=== PATIENT | male | born 1945 | race Caucasian/White ===

== ENCOUNTER 2025-03-30 12:48 | Emergency (ER) | payer MEDICARE, OTHER, SELFPAY ==
[2025-03-30] VITALS (8 sets, daily range): BP systolic 133–174; BP diastolic 69–91; PULSE 60; O2SAT 97; BMI 24.4
--- NOTE | 2025-03-30 13:31 | ED.GENMED ---
History of Present Illness
General
Chief Complaint: Change in Mental Status
Source: patient
Exam Limitations: none
Time Seen by Provider: 03/30/25 13:15
History of Present Illness
History of Present Illness:
79yoM with a history of an intracranial hemorrhage in 2022 after a fall (managed conservatively) presenting with his for evaluation of weakness. 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
and gait imbalance. He was discharged from physical therapy about 3 months ago and since then, has been experiencing increasing falls. His last fall was about a week ago. states he hit his head rolling out of bed but patient denies this. He
has been increasingly weak over the past few days and weakness is generalized. He noticed some nausea this morning and states his 'head feels fuzzy' which is new. He denies any fevers, vomiting, diarrhea, chest pain, abdominal pain, shortness of
breath.
Phy Exam
General Physical Exam
General Presentation: well appearing and no apparent distress
General Skin: warm and dry
General Habitus: normal and elderly
General Mental: alert
ENT Exam
ENT Exam: normocephalic
Cardiovascular Exam
Cardiovascular Exam: regular rate/rhythm
Pulmonary Exam
Pulmonary Exam: lungs clear, no respiratory distress, no rales, no crackles, no rhonchi and no wheezing
Neurological Exam
Neurological Exam: alert, no motor deficits, speech normal and other (Patient A&O. 5/5 strength in all extremities. No focal deficits noted. )
[place] Coma Scale
Eye Opening: Spontaneous
Verbal Response: Oriented
Motor Response: Obeys Commands
GCS Total Score: 15
Skin Exam
Skin Exam: normal color and warm/dry
Psychiatric Exam
Psychiatric Exam: normal mood/affect
Course
Orders/Labs/Results
Orders:
Orders
03/30/25 13:29
Electrocardiogram (*1) Urgent
Reason for Study: Vertigo / Dizzy
CT Head W/o Iv Contrast Urgent
Comment:
Reason For Exam: head fuzziness, frequent falls
EKG- Treatment ONCE
03/30/25 13:34
Complete Blood Count/With Diff Urgent
Comprehensive Metabolic Panel Urgent
TSH Reflex To Free T4 Urgent
03/30/25 14:44
Pt Eval And Treat Urgent
Activity Level: Out of Bed- Ad Leanne
Abnormal Lab Results
03/30/25
13:34
MCHC 32.4 L g/dL
(33.0-37.0)
Absolute Monos (auto) 0.7 H 10^3/uL
(0.1-0.6)
Monocytes % 12.2 H %
(1.7-9.3)
Chloride 108 H mmol/L
(98-107)
Glucose 134 H mg/dl
(70-99)
03/30/25 13:34
03/30/25 13:34
Vital Signs
Initial and Last Documented VS:
Initial Vital Signs
Temp Pulse Resp BP Pulse Ox
97.8 F 70 20 163/91 96
03/30/25 12:51 03/30/25 12:51 03/30/25 12:51 03/30/25 12:51 03/30/25 12:51
Last Documented Vital Signs
Temp Pulse Resp BP Pulse Ox
97.8 F 60 11 172/74 97
03/30/25 12:51 03/30/25 15:50 03/30/25 15:50 03/30/25 15:49 03/30/25 15:50
MDM/Problems Addressed
Differential Diagnosis Includes:
79yoM here with generalized weakness. Chronic gait issues/weakness since an intracranial hemorrhage in 2022. Feels like his weakness is worse the past few days and his head is fuzzy. Frequent falls for several months. He is hypertensive with
otherwise stable vitals. He is awake, alert, with a GCS of 15. No focal neuro deficits noted on exam. Differential diagnosis includes but is not limited to: ambulatory dysfunction, residual side effects from prior intracranial hemorrhage, UTI,
thyroid dysfunction
Initial ED plan: Check CBC, CMP, TSH, EKG, UA, and CT head.
*Pulse Oximetry
SaO2: 96
Oxygen Mode of Delivery: Room air
Patient hypoxic: no
*EKG
Interpreted by ED Provider?: Yes
EKG Intrepretation Date: 03/30/25
Heart Rate: 60
Rate: normal
Rhythm: sinus
[place]: normal axis
Interval: normal interval
QRS Pattern: normal QRS
Ischemia: no ischemia
*Critical Care Note
Total Time (30-74mins, 75-104mins- exclusive of procedures): Not Applicable
Update Note
Update Note:
Labs unremarkable including normal white count, TSH, and renal function. EKG shows NSR without ischemic changes. CT head negative for acute findings. Patient evaluated by PT who recommended outpatient physical therapy. Patient unable to provide
urine sample in ED but both patient and are requesting to be discharged without urinalysis. Family did contact his PCP already for f/u. ED return precautions reviewed and he was discharged in stable condition.
ED Attending Note
-
Portions of this chart may have been created with voice recognition software.� Occasional wrong word or��sound alike� substitutions may have occurred due to the inherent limitations of voice recognition software.
Discharge Plan
Departure
Patient Disposition: Home (Routine Discharge)
Date of Disposition: 03/30/25
Time of Disposition: 15:45
Patient with high blood pressure during this ER visit?: Yes
Discharge Problem:
Generalized weakness
Instructions: Weakness - ED (DC)
Referrals:
Aneta Sue DO [Family Provider, Family Practice]
Activity Restrictions/Additional Instructions:
Please follow-up with your family doctor. Our physical therapist recommended that you restart outpatient physical therapy treatments.
Return to the ER with any new or worsening symptoms.
Interventions
Interventions:
*Risk Screen - Suicide Last Done: 03/30/25 12:52
*General Assessment Last Done: 03/30/25 14:15
*Neglect/Abuse Screening Last Done: 03/30/25 13:17
*ED- Fall Risk Assessment Last Done: 03/30/25 14:15
*ED COVID-19 Vaccine History Last Done: 03/30/25 14:15
*Nursing Disposition Last Done: 03/30/25 15:55
ED- Pulmonary Assessment Last Done: 03/30/25 13:24
ED-Psychological Assessment Last Done: 03/30/25 14:15
ED- Neurological Assessment Last Done: 03/30/25 13:19
ED- Cardiac Assessment Last Done: 03/30/25 13:24
ED Swallowing Screen Last Done: 03/30/25 14:14
Discharge Date and Time
Discharge Date/Time: 03/30/25 15:55
Print Language: LAO
[2025-03-30 13:46] LABS: Hematocrit 41.7 % (39.0-52.0); Hemoglobin 13.5 g/dL (13.0-18.0); Mean Corp Hgb Conc. 32.4 g/dL (33.0-37.0); Mean Corpuscular Volume 85.6 fL (80.0-94.0); Nucleated Red Blood Cells % 0 % (-); Platelet Count 205 10^3/uL (130-400); Red Cell Dist. Width 13.9 % (11.5-14.5)
[2025-03-30 14:06] LABS: ALT (SGPT) 17 U/L (0-50); AST (SGOT) 23 U/L (17-59); Albumin 4.1 g/dl (3.5-5.0); Alkaline Phosphatase 56 U/L (38-126); Blood Urea Nitrogen 17 mg/dl (9-20); Calcium 10.0 mg/dl (8.4-10.2); Carbon Dioxide 26 mmol/L (22-30); Chloride 108 mmol/L (98-107); Estimated Creatinine Clearance 70 ml/min; Glucose 134 mg/dl (70-99); Potassium 4.7 mmol/L (3.5-5.1); Sodium 138 mmol/L (135-145); Total Protein 6.7 g/dl (6.3-8.2); eGFR > 60.00
--- NOTE | 2025-03-30 15:04 | EDRN ---
Physical Therapist in room w/ pt at this time.
--- NOTE | 2025-03-30 15:45 | EDRN ---
This RN spoke w/ pt about importance of urine spec in relation to his symptoms of weakness. Pt declined urine spec saying he wishes to go home and does not wish to wait until he can go again.
== END 2025-03-30 15:55 | disposition home or self-care (01) ==
LOC: EMR 12:48
PROVIDERS: Physician Assistant; EMERGENCY PHYSICIAN Emergency Medicine; FAMILY PHYSICIAN Family Medicine
DX: R53.1 Weakness (principal); R26.9 Unspecified abnormalities of gait and mobility; R29.6 Repeated falls; Z86.73 Personal history of transient ischemic attack (TIA), and cerebral infarction without residual deficits
CPT/HCPCS: 99284; 70450; 80053; 84443; 85025; 93005